=== PATIENT | female | born 1975 | race Caucasian/White ===

== ENCOUNTER → 2016-08-31 | Outpatient (CLI) | payer BC | LOC: RAD 13:43 | PROVIDERS: ATTEND Otolaryngology | DX: H74.8X2 Other specified disorders of left middle ear and mastoid (principal) | CPT/HCPCS: 70480 ==

== ENCOUNTER 2016-10-20 09:19 | Day surgery (SDC) | payer BC ==
[2016-10-16 09:32] LABS: HEMOGLOBIN 14.1 g/dL (12.0-15.5); HGB HCT DIFFERENCE 1.3; MEAN CORPUSCULAR HEMOGLOBIN 29.6 pg (27.0-33.4); MEAN CORPUSCULAR HGB CONC 34.3 g/dL (32.0-36.0); MEAN CORPUSCULAR VOLUME 86 fl (80-97); RED BLOOD COUNT 4.77 10^6/uL (3.72-5.28); RED CELL DISTRIBUTION WIDTH 12.6 % (11.5-14.0); WHITE BLOOD COUNT 5.7 10^3/uL (4.0-10.5)
[2016-10-16 09:59] LABS: ANION GAP 11 (5-19); BLOOD UREA NITROGEN 17 mg/dL (7-20); CALCIUM 9.8 mg/dL (8.4-10.2); CARBON DIOXIDE 27 mmol/L (22-30); CHLORIDE 102 mmol/L (98-107); CREATININE RESULT 0.76 mg/dL (0.52-1.25); GLUCOSE 88 mg/dL (75-110); POTASSIUM 4.9 mmol/L (3.6-5.0)
[~2016-10-20 09:19] MED LIST: ACETAMINOPHEN 325 MG TABLET PO PRN; CEFAZOLIN 1 GM/D5W RTU 1 GM/50 ML RTUPB IV PRN; LACTATED RINGERS 1000 ML IV PRN; LIDOCAINE 0.5% INJ-PF (5 MG/ML) 50 ML SDV SUBCUT PRN
[2016-10-20] MEDS ORDERED: BUPIVACAINE HCL 0.25 % INJ/PF (2.5 MG/1 ML) 30 ML VIAL ONE (09:20)
[2016-10-20] MEDS ORDERED: HYDROMORPHONE HCL INJ/PF 2 MG/ML AMPULE ONE (10:49)
[2016-10-20] MEDS ORDERED: FENTANYL CITRATE INJ/PF 100 MCG/2 ML AMPUL ONE (10:49)
[2016-10-20] MEDS ORDERED: PROPOFOL INJ 200 MG/20 ML VIAL IV ONE (10:50)
[2016-10-20] MEDS ORDERED: ACETAMINOPHEN 100 ML IV ONE (10:50)
[2016-10-20] MEDS ORDERED: MIDAZOLAM 2 MG/2 ML INJ ONE (10:50)
[2016-10-20] MEDS ORDERED: MORPHINE SULFATE 10 MG/ML INJ IV PRN (12:02)
[2016-10-20] MEDS ORDERED: DIPHENHYDRAMINE HCL 50 MG/ML VIAL IV PRN (12:02)
[2016-10-20] MEDS ORDERED: FENTANYL CITRATE INJ/PF 100 MCG/2 ML AMPUL IV PRN ×3 (12:02)
[2016-10-20] MEDS: FENTANYL CITRATE INJ/PF 100 MCG/2 ML AMPUL ONE ×2 (13:05→13:10)
--- NOTE | 2016-10-20 13:06 | Operative Report ---
Operative Report DATE OF SURGERY: 10/20/16 PREOPERATIVE DIAGNOSIS: Umbilical hernia POSTOPERATIVE DIAGNOSIS: Umbilical hernia OPERATION: Umbilical hernia repair SURGEON: MINA JOHNSTON ANESTHESIA: GA TISSUE REMOVED OR ALTERED: Hernia sac, omentum COMPLICATIONS: None ESTIMATED BLOOD LOSS: Minimal INTRAOPERATIVE FINDINGS: 1.5 cm umbilical hernia fascial defect. Fairly large hernia sac with the herniated omentum. PROCEDURE: Informed consent was obtained. Patient was brought to the operating room and placed on the operating room table in the supine position. After satisfactory induction of general anesthesia, patient's abdomen was prepped and draped in the usual sterile fashion. Local anesthetic was administered. A semicircular infraumbilical incision was made. Dissection was carried down. The hernia sac was dissected off of the overlying umbilicus. The hernia sac was open revealing omentum. The omentum was adhered to the hernia sac and these adhesions were taken down. Portion of the herniated omentum was taken by clamping dividing and tying. Dropping the remainder of the omentum back into the peritoneal cavity. The hernia sac was excised. The fascial defect measured 1.5 cm in size. It was fixed primarily using interrupted Ethibond sutures closing the defect transversely. The repair came together well without tension. Hemostasis appeared excellent. The bellybutton was tacked to the underlying fascia using interrupted Vicryl sutures. Skin was closed with interrupted dermal Vicryl sutures. Steri-Strips were applied. Patient tolerated procedure well with no apparent complications and was taken to the recovery area in stable condition.
--- NOTE | 2016-10-20 13:09 | PDOC DISCHARGE SUMMARY ---
Discharge Summary (SDC) - Discharge Final Diagnosis: Umbilical hernia. Date of Surgery: 10/20/16 Discharge Date: 10/20/16 Condition: Good Treatment or Instructions: Umbilical hernia repair. May discharge patient home when met discharge criteria. May shower in 2 days. Keep Steri-Strips on. Stay active but avoid strenuous activity. Follow-up with me in 2 weeks. Prescriptions: Oxycodone HCl/Acetaminophen [Percocet 5-325 mg Tablet] 1 tab PO ASDIR PRN #25 tablet PRN Reason: Discharge Diet: As Tolerated Discharge Activity: Activity As Tolerated - Stay active but avoid strenuous activity. Report the Following to Your Physician Immediately: Fever over 101 Degrees, Unusual Bleeding, Redness, Drainage-Foul Smelling
[2016-10-20] MEDS ORDERED: RINGERS SOLUTION,LACTATED 1,000 ML IV PRN (13:10)
[2016-10-20] MEDS ORDERED: ONDANSETRON HCL INJ/PF 4 MG/2 ML SDV IV PRN (13:10)
[2016-10-20] MEDS ORDERED: OXYCODONE-ACETAMINOPHEN 5-325 MG TABLET PO PRN (13:10)
[2016-10-20] MEDS ORDERED: ONDANSETRON HCL INJ/PF 4 MG/2 ML SDV ONE ×2 (13:37→13:55)
[2016-10-20] MEDS ORDERED: SUCCINYLCHOLINE CHLORIDE INJ 200 MG/10 ML VIAL ONE (13:55)
[2016-10-20] MEDS ORDERED: DEXAMETHASONE SOD PHOSPHATE INJ 4 MG/1 ML VIAL ONE (13:55)
[2016-10-20] MEDS ORDERED: LIDOCAINE 2% INJ-PF (20 MG/ML) 10 ML AMPUL ONE (13:55)
[2016-10-20] MEDS ORDERED: SCOPOLAMINE HYDROBROMIDE 1.5 MG PATCH.TD72 ONE (14:22)
[2016-10-20 15:42] VITALS: BP 147/85
== END 2016-10-20 15:35 | disposition home or self-care (01) ==
LOC: OROUT 09:19
PROVIDERS: ATTEND Surgery
PROC: 0WQF0ZZ Repair Abdominal Wall, Open Approach (ICD-10-PCS; principal; 2016-10-20 11:30)
DX: K42.9 Umbilical hernia without obstruction or gangrene (principal); E66.9 Obesity, unspecified; Z79.3 Long term (current) use of hormonal contraceptives; Z79.899 Other long term (current) drug therapy; Z68.34 Body mass index [BMI] 34.0-34.9, adult; Z87.442 Personal history of urinary calculi
CPT/HCPCS: 36415; 85027; 81025; 80048; 88302 ×2; 49585; J2250; J0690; J1100; J3010; J1170; J0330; J2405; J2704; J3490; J0131; 750

== ENCOUNTER → 2016-10-28 | Outpatient (CLI) | payer BC ==
[2016-10-28 09:09] LABS: ABSOLUTE EOSINOPHILS # (AUTO) 0.1 10^3/uL (0.0-0.6); ABSOLUTE LYMPHOCYTES (AUTO) 1.2 10^3/uL (0.5-4.7); ABSOLUTE MONOCYTES (AUTO) 0.5 10^3/uL (0.1-1.4); ABSOLUTE NEUT (AUTO) 3.7 10^3/uL (1.7-8.2); BASOPHILS % (AUTO) 0.7 % (0-2); EOSINOPHILS % (AUTO) 2.4 % (0-6); HEMATOCRIT 39.6 % (36.0-47.0); HEMOGLOBIN 13.2 g/dL (12.0-15.5); MEAN CORPUSCULAR HGB CONC 33.4 g/dL (32.0-36.0); MEAN CORPUSCULAR VOLUME 87 fl (80-97); MONOCYTES % (AUTO) 8.2 % (3-13); RED BLOOD COUNT 4.55 10^6/uL (3.72-5.28); RED CELL DISTRIBUTION WIDTH 13.1 % (11.5-14.0); SEGMENTED NEUTROPHILS % (AUTO) 66.7 % (42-78); WHITE BLOOD COUNT 5.6 10^3/uL (4.0-10.5)
[2016-10-28 09:39] LABS: ALANINE AMINOTRANSFERASE 30 U/L (9-52); ALKALINE PHOSPHATASE 54 U/L (38-126); ANION GAP 9 (5-19); ASPARTATE AMINO TRANSFERASE 21 U/L (14-36); BILIRUBIN,DIRECT 0.3 mg/dL (0.0-0.4); BILIRUBIN,TOTAL 0.4 mg/dL (0.2-1.3); BLOOD UREA NITROGEN 16 mg/dL (7-20); CALCIUM 8.9 mg/dL (8.4-10.2); CARBON DIOXIDE 27 mmol/L (22-30); CHLORIDE 102 mmol/L (98-107); CHOLESTEROL 259.94 mg/dL (0-200); CREATININE RESULT 0.77 mg/dL (0.52-1.25); Direct HDL 42 mg/dL (>40); GLUCOSE 87 mg/dL (75-110); SODIUM 138.2 mmol/L (137-145); TOTAL PROTEIN 7.1 g/dL (6.3-8.2); TRIGLYCERIDES 162 mg/dL (<150)
[2016-10-28 09:49] LABS: DIRECT LDL 176 mg/dL (<100)
[2016-10-28 09:51] LABS: VLDL CHOLESTEROL 32.4 mg/dL (10-31)
[2016-10-29 14:02] LABS: C-PEPTIDE 2.8 ng/mL (1.1-4.4); INSULIN 10.3 uIU/mL (2.6-24.9)
== END ==
LOC: OD 07:57
PROVIDERS: ATTEND Internal Medicine
DX: Z00.00 Encounter for general adult medical examination without abnormal findings (principal); R73.9 Hyperglycemia, unspecified
CPT/HCPCS: 36415; 80053; 80061; 83036; 83525; 84443; 84681; 85025

== ENCOUNTER 2017-01-08 06:37 | Day surgery (SDC) | payer BC ==
[2017-01-08] MEDS ORDERED: CIPROFLOXACIN HCL/DEXAMETH OTIC DROP 7.5 ML ONE (06:47)
[2017-01-08] MEDS ORDERED: EPINEPHRINE INJ 30 MG/30 ML VIAL ONE (06:47)
[2017-01-08] MEDS ORDERED: LIDOCAINE 1%/EPINEPHRINE INJ 20 ML VIAL ONE (06:47)
[2017-01-08] MEDS ORDERED: PHENYLEPHRINE HCL INJ/PF 10 MG/1 ML SDV ONE (07:10)
[2017-01-08] MEDS ORDERED: FENTANYL CITRATE INJ/PF 250 MCG/5 ML AMPULE ONE (07:11)
[2017-01-08] MEDS ORDERED: MIDAZOLAM 2 MG/2 ML INJ ONE (07:11)
[2017-01-08] MEDS ORDERED: FENTANYL CITRATE INJ/PF 100 MCG/2 ML AMPUL ONE ×2 (07:11→11:25)
[2017-01-08] MEDS ORDERED: MORPHINE SULFATE 10 MG/ML INJ ONE (07:12)
[2017-01-08] MEDS ORDERED: EPHEDRINE SULFATE INJ 50 MG/1 ML AMPULE ONE (07:12)
[2017-01-08] MEDS ORDERED: PROPOFOL INJ 200 MG/20 ML VIAL IV ONE (07:13)
[2017-01-08] MEDS ORDERED: FAMOTIDINE INJ/PF 20 MG/2 ML SDV IV ONE (07:15)
[2017-01-08] MEDS ORDERED: NALOXONE HCL INJ/PF 0.4 MG/1 ML SDV ONE (07:16)
[2017-01-08] MEDS ORDERED: SCOPOLAMINE HYDROBROMIDE 1.5 MG PATCH.TD72 TD ONE (07:30)
[2017-01-08] MEDS ORDERED: BACITRACIN ZINC OINTMENT 15 GM TP PRN (09:02)
[2017-01-08] MEDS ORDERED: LIDOCAINE 2% INJ-PF (20 MG/ML) 10 ML AMPUL ONE (11:27)
[2017-01-08] MEDS ORDERED: DEXAMETHASONE SOD PHOSPHATE INJ 4 MG/1 ML VIAL ONE (11:27)
[2017-01-08] MEDS ORDERED: SUCCINYLCHOLINE CHLORIDE INJ 200 MG/10 ML VIAL ONE (11:28)
[2017-01-08] MEDS ORDERED: AMPICILLIN SOD INJ 1 GM VIAL ONE (11:28)
[2017-01-08] MEDS ORDERED: ONDANSETRON HCL INJ/PF 4 MG/2 ML SDV ONE (11:28)
[2017-01-08] MEDS ORDERED: RINGERS SOLUTION,LACTATED 1,000 ML IV ONE (11:30)
[2017-01-08] MEDS: FENTANYL CITRATE INJ/PF 100 MCG/2 ML AMPUL ONE ×2 (12:04→12:16)
--- NOTE | 2017-01-08 16:10 | OPERATIVE REPORT E ---
Operative Report NAME: YRIS CABRAL : 1975 AGE: 41Y DATE OF SURGERY: 01/08/2017 ROOM: PREOPERATIVE DIAGNOSES: 1. Atelectasis, left tympanic membrane. 2. Left mastoid sclerosis. 3. Granuloma, left tympanic membrane and middle ear. POSTOPERATIVE DIAGNOSES: 1. Atelectasis, left tympanic membrane. 2. Left mastoid sclerosis. 3. Granuloma, left tympanic membrane and middle ear. OPERATION: 1. Left canal wall intact mastoidectomy with tympanoplasty. 2. Excision of granuloma from middle ear. SURGEON: MICHELLE DIAL M.D. CONSUMER SAFETY OFFICER: None. ANESTHESIA: General, Michael Tafoya MD with Dotty Mcbride CRNA PREOPERATIVE NOTE: This is a 41-year-old female who has a long history of ear disease dating back into childhood. She had multiple sets of tubes placed by Dr. Cabral when she was younger, back in the 1970s. She thinks she must have had 9 sets of tubes. She was originally seen here by Dennis Woodward III, MD. He treated her with Ciprodex otic suspension and saw her in followup on 11/27/2015 He though the tympanic membrane looked fine. She was then seen again in mid-August 2016 at which point there was a posterosuperior recess which looked wet and appeared to have granulation tissue around it, strongly suggestive of an early cholesteatoma. The concern was that this retraction pocket was being sucked down onto the incus long process or incudostapedial joint area. A perforation, as such, was not seen, but certainly this did look very concerning. She was again treated with Ciprodex otic suspension and set up for a temporal bone CT. The CT scan was done at [facility] and she was seen back in followup on 09/03/2016. The CT scan showed sclerosis of the left mastoid, very much more than the right. It was felt, at this point, that she ought to have a canal wall intact mastoidectomy with tympanoplasty to render this ear safe. For some reason, the patient did not want to have the surgery done until the end of December/early January. She now comes in to have this procedure done. PROCEDURE: The patient was seen and identified in the preoperative holding area. She is seen in company with her mother. The left ear was marked for laterality. The patient was then given a scopolamine patch because she has problems with nausea, vomiting and dizziness with anesthetics. She was then taken to the operating room and placed in supine position. General anesthesia was induced and an oral endotracheal tube was placed. The patient was carefully positioned. The left ear was further shaved, although she had done a very good job of this already. The facial nerve monitoring electrodes were then placed and connected and the equipment was tested and was seen to be functioning satisfactorily. The left ear was then appropriately prepped and draped for left otologic surgery. A short time-out then took place, during which all issues relating to the patient's identify, the patient's positioning on the table, the laterality of the part to be operated on, the procedures to be performed and the risks attendant thereto were discussed and there were no matters arising. The Zeiss operating microscope was then brought into the field and the left ear canal was examined and flushed. The atelectatic area was inflated, possibly by the anesthetic gases. It appeared to have granulomas all over it. The tympanic membrane was otherwise noted to be intact. It was suctioned clean and then the external canal was infiltrated with 1% lidocaine 1:200,000 epinephrine utilizing a 25-gauge needle. The same material was used to infiltrate the postauricular skin crease which was marked for its incision. A return was made to the external canal and radial incisions were brought out at 6 o'clock and 12 o'clock and these were connected using a canal knife, leaving a generous posterosuperior corner. This flap was then elevated down towards the annulus. A laterally-based posterior canal wall flap was also developed for a short distance in the lateral direction. The tympanomeatal flap was now elevated down to the annulus and this was elevated inferiorly and the middle ear was entered. The elevation of the annulus was then carried superiorly until the retraction pocket in the region of the incus was encountered. Dissection was then directed above that point, and carried into the notch of Rivinus. The chorda tympani nerve was identified at the inferior limits of the second area, and that structure was gradually traced in an anterior direction towards the neck of the malleus, but significant scar tissue and swelling was encountered in the surrounding membrane, at about the half way point, and this dissection was discontinued for fear of stretching the nerve too much. There then began a tedious dissection of the retraction pocket itself. This was gently done with a mixture of instruments including the House number 1 knife, the round knife, the Hull pick and the whirlybird. Eventually, the pocket could be teased out of the middle ear without rupturing it. The tympanomeatal flap could now then be reflected forwards as far as the neck and short process of the malleus. With gentle dissection, it now proved possible to separate the chorda tympani nerve from the flap. Some of that was done utilizing Bellucci scissors. Reflecting the tympanomeatal flap back onto the posterior canal wall, it was decided to divide the flap itself into 2 halves, and excise the diseased area of the tympanic membrane. This was done with Bellucci scissors with good result. That specimen was then handed to the circulating nurse to be transferred to the Pathology Department for histological examination. Dissection now could be more easily done onto the short process of the malleus. An incision was made along the handle of the malleus using a sharpened Hull pick. The periosteum was elevated in a lateral direction and then anteriorly in order to shell the handle of the malleus and short process out of their periosteal coverings. This developed a pocket to allow for the insertion of a tongue of temporalis fascia that would become medial to the tympanic membrane. The umbo was not disturbed and the tip of the handle of the malleus was still attached there. Two large pieces of Gelfoam sponge soaked in Ciprodex otic suspension were then placed in the middle ear. The postauricular skin incision was now cross hatched and incised using a #15 blade on a #7 handle. Superficial bleeding points were secured using needlepoint electrocautery set at 25 on coagulating current. The dissection was then done with curved iris scissors in an anterior direction towards the external canal. A Weitlaner was inserted. Dissection was done down onto the temporalis muscle. A large piece of fool's fascia was harvested and stored dry on the block. A similar sized piece of temporalis fascia was then harvested and this was cleansed and then placed in the fascia press for later use. Bleeding points were secured with needlepoint electrocautery. The inferior temporal line was then confirmed using needlepoint electrocautery and a second such incision was created at right angles to the first, along the length,of the mastoid process from above,inferiorly. Mastoid periosteum was then elevated, anteriorly and posteriorly, with a periosteal elevator. The spine of Henle came into view. It was then possible to elevate the laterally-based posterior canal wall flap using a Needville elevator. A Kruse self-retaining retractor was then inserted , and a good view of the external canal and tympanic membrane was attained. A Weitlaner was then inserted, superoinferiorly, and drilling was commenced on the external surface of the mastoid bone. Copious irrigation was utilized and bone dust was collected in a Brandcast suction trap for later use at the time of closure. This was washed multiple times in saline. The mastoid process, as expected, was heavily sclerotic. A great deal of drilling had to be done. A Meenu septum was encountered. There was cancellous bone marrow around the mastoid tip. There were a few air cells medially. The sigmoid sinus was mildly lateralized, but not as lateral as in some cases. The antrotomy was easily performed and then the superior margin of the mastoid dissection was taken superiorly with large cutting bur until the dural plate of the middle cranial fossa was identified and skeletonized. The sigmoid sinus was likewise identified and skeletonized and the dissection was taken up and back to confirm Citelli's angle. The posterior canal wall was thinned from behind. The dissection there was taken down until the lateral semicircular canal came into view and also, eventually, the body and short process of the incus. No drilling occurred on the ossicles. There was no necessity to do much more opening of the aditus ad antrum as, having first removed the Gelfoam sponges that had been placed there, free flow of irrigation fluid was noted through into the middle ear from the Antrum. At this point, attention was turned back to the tympanoplasty and the middle ear. The tympanomeatal flap halves were reflected forward. The medial aspect of the tympanic membrane remnant was scraped with a Helix drum-scraper. The middle ear was then filled with chips of Gelfoam soaked in Ciprodex otic suspension. The temporalis fascia graft was then trimmed to size and was inserted with the leading tongue placed lateral to the handle and short process of the malleus , but medial to the tympanic membrane remnant. It was then led up onto the posterior bony canal wall. The tympanomeatal flaps were returned and further chips of Gelfoam sponge were placed lateral to all of that. The mastoid dissection was then reviewed. The remainder of the temporalis fascia graft was placed in the medial aspect of the aditus ad antrum and the neighboring mastoid antrum itself. The fool's fascia was compressed in the fascia press and then was laid on the medial aspect of the mastoid bowl. The whole of the mastoid bowl was now filled with Gelfoam sponge soaked in Ciprodex otic suspension. A sheet of Gelfilm was trimmed to size and placed over the cortical defect. This was then covered with previously harvested bone dust. The mastoid periosteum was then reconstituted loosely with 2-0 chromic catgut sutures. The conchal cartilage was then sutured back to the posterior mastoid periosteum using a pair of chromic catgut sutures to prevent postoperative anterior migration of this structure. The wound was then closed in layers using 2-0 chromic catgut interrupted sutures with buried knots through the subdermal layer and then skin loraine for the skin. A quarter-inch Kelsi drain was led out of the inferior end of the wound and this was secured with a single 2-0 chromic catgut suture. The external canal was then visualized with the microscope and the laterally-based posterior canal wall flap was replaced and a finger cot pack, created by removing the "pinky" finger from a #7 surgical glove filled with cotton, was placed in the external auditory meatus having first lubricated it with bacitracin ointment. The drapes were all removed and the wound was cleansed with saline and then dried and then the area was liberally coated with bacitracin ointment. Telfa was then utilized, followed by the Christa dressing. The facial nerve monitoring electrodes were removed. The patient was awakened, and extubated, light and transferred to the PACU in good condition having tolerated the procedure well. Estimated blood loss was 20 mL. Replacement was 1600 mL of lactated Ringer's. There were no complications or untoward events and the facial nerve function was seen to be intact at the close of the surgical procedure. DICTATING PHYSICIAN: MICHELLE DIAL M.D. [id number] PHY#: [id number] ID: [id number] JOB#: [id number] ACCT: [id number] cc:MICHELLE DIAL M.D. > TANIA
== END 2017-01-08 13:35 | disposition home or self-care (01) ==
LOC: SC 06:37
PROVIDERS: ATTEND Otolaryngology
PROC: 09Q60ZZ Repair Left Middle Ear, Open Approach (ICD-10-PCS; 2017-01-08)
PROC: 09B60ZZ Excision of Left Middle Ear, Open Approach (ICD-10-PCS; 2017-01-08)
PROC: 0NB60ZZ Excision of Left Temporal Bone, Open Approach (ICD-10-PCS; principal; 2017-01-08 07:30)
DX: H73.812 Atrophic flaccid tympanic membrane, left ear (principal); H71.12 Cholesteatoma of tympanum, left ear; H70.12 Chronic mastoiditis, left ear; F90.9 Attention-deficit hyperactivity disorder, unspecified type
CPT/HCPCS: 88305 ×2; 69643; 69799; J0290; J2250; J1100; J0171; J3010 ×2; J3490 ×3; J0330; J2405; J7120; J2704; S0028; 120; J2270; J2310; J2370

== ENCOUNTER → 2017-12-23 | Outpatient (CLI) | payer BC ==
[2017-12-23 11:27] LABS: ALANINE AMINOTRANSFERASE 34 U/L (9-52); ALBUMIN 4.3 g/dL (3.5-5.0); ALKALINE PHOSPHATASE 50 U/L (38-126); ASPARTATE AMINO TRANSFERASE 31 U/L (14-36); BILIRUBIN,DIRECT 0.3 mg/dL (0.0-0.4); BILIRUBIN,TOTAL 0.4 mg/dL (0.2-1.3)
== END ==
LOC: OD 09:48
PROVIDERS: ATTEND Internal Medicine
DX: Z51.81 Encounter for therapeutic drug level monitoring (principal); Z79.899 Other long term (current) drug therapy
CPT/HCPCS: 36415; 80076

== ENCOUNTER → 2018-03-22 | Outpatient (CLI) | payer BC ==
[2018-03-22 11:52] LABS: ALANINE AMINOTRANSFERASE 58 U/L (9-52); ALBUMIN 4.5 g/dL (3.5-5.0); ALKALINE PHOSPHATASE 52 U/L (38-126); ASPARTATE AMINO TRANSFERASE 32 U/L (14-36); BILIRUBIN,DIRECT 0.1 mg/dL (0.0-0.4); BILIRUBIN,TOTAL 0.5 mg/dL (0.2-1.3); TOTAL PROTEIN 7.3 g/dL (6.3-8.2); TRIGLYCERIDES 99 mg/dL (<150)
[2018-03-22 12:03] LABS: DIRECT LDL 145 mg/dL (<100)
== END ==
LOC: OD 10:25
PROVIDERS: ATTEND Internal Medicine
DX: E78.5 Hyperlipidemia, unspecified (principal); Z79.899 Other long term (current) drug therapy
CPT/HCPCS: 36415; 80061; 80076

== ENCOUNTER → 2018-06-17 | Outpatient (CLI) | payer BC | LOC: OD 10:53 | PROVIDERS: ATTEND Family Medicine | DX: J02.9 Acute pharyngitis, unspecified (principal) | CPT/HCPCS: 87070; 87077; 87880 ==

== ENCOUNTER → 2018-10-06 | Outpatient (CLI) | payer BC | LOC: OD 13:55 | PROVIDERS: ATTEND Otolaryngology | DX: R09.81 Nasal congestion (principal); Z53.8 Procedure and treatment not carried out for other reasons | CPT/HCPCS: 36415; 82785; 86003 ==

== ENCOUNTER → 2018-10-13 | Outpatient (CLI) | payer BC | LOC: OD 16:30 | PROVIDERS: ATTEND Otolaryngology | DX: R09.81 Nasal congestion (principal) | CPT/HCPCS: 36415; 82785; 86003 ==

== ENCOUNTER → 2019-03-31 | Outpatient (CLI) | payer BC ==
[2019-03-31 09:47] LABS: ABSOLUTE EOSINOPHILS # (AUTO) 0.1 10^3/uL (0.0-0.6); ABSOLUTE LYMPHOCYTES (AUTO) 1.3 10^3/uL (0.5-4.7); ABSOLUTE MONOCYTES (AUTO) 0.4 10^3/uL (0.1-1.4); ABSOLUTE NEUT (AUTO) 2.8 10^3/uL (1.7-8.2); BASOPHILS % (AUTO) 0.8 % (0-2); EOSINOPHILS % (AUTO) 1.7 % (0-6); HEMATOCRIT 40.1 % (36.0-47.0); HEMOGLOBIN 13.8 g/dL (12.0-15.5); LYMPHOCYTES % (AUTO) 27.6 % (13-45); MEAN CORPUSCULAR HEMOGLOBIN 29.2 pg (27.0-33.4); MEAN CORPUSCULAR HGB CONC 34.4 g/dL (32.0-36.0); MEAN CORPUSCULAR VOLUME 85 fl (80-97); MONOCYTES % (AUTO) 8.4 % (3-13); PLATELET COUNT 230 10^3/uL (150-450); RED BLOOD COUNT 4.72 10^6/uL (3.72-5.28); RED CELL DISTRIBUTION WIDTH 12.8 % (11.5-14.0); SEGMENTED NEUTROPHILS % (AUTO) 61.5 % (42-78); TOTAL CELLS COUNTED % (AUTO) 100 %; WHITE BLOOD COUNT 4.5 10^3/uL (4.0-10.5)
[2019-03-31 10:15] LABS: ALBUMIN 4.8 g/dL (3.5-5.0); ALKALINE PHOSPHATASE 61 U/L (38-126); ANION GAP 13 (5-19); ASPARTATE AMINO TRANSFERASE 33 U/L (14-36); BILIRUBIN,DIRECT 0.1 mg/dL (0.0-0.4); BILIRUBIN,TOTAL 0.4 mg/dL (0.2-1.3); BLOOD UREA NITROGEN 15 mg/dL (7-20); CALCIUM 9.3 mg/dL (8.4-10.2); CARBON DIOXIDE 25 mmol/L (22-30); CHLORIDE 105 mmol/L (98-107); CHOLESTEROL 218.65 mg/dL (0-200); GLUCOSE 89 mg/dL (75-110); POTASSIUM 4.5 mmol/L (3.6-5.0); TOTAL PROTEIN 7.9 g/dL (6.3-8.2); TRIGLYCERIDES 53 mg/dL (<150)
[2019-03-31 10:25] LABS: DIRECT LDL 142 mg/dL (<100)
== END ==
LOC: OD 08:34
PROVIDERS: ATTEND Internal Medicine
DX: E78.5 Hyperlipidemia, unspecified (principal); R53.83 Other fatigue
CPT/HCPCS: 36415; 80053; 80061; 84443; 85025

== ENCOUNTER → 2020-04-24 | Outpatient (CLI) | payer BC ==
[2020-04-24 09:33] VITALS: BP 117/81
--- NOTE | 2020-04-24 09:33 | ER [facility] ASSESSMENT REPORT ---
Intake - In the Last 14 days Have you traveled outside [place]?: No Have you been in close contact with someone CONFIRMED: Yes Worked in Healthcare?: No - Symptoms Subjective Fever([place] feverish): No Chills: No Muscule Aches: No Runny Nose: No Sore Throat: No Cough (New or worsening chronic cough): No Shortness of breath: No Nausea or Vomiting: No Headache: No Abdominal Pain: No Diarrhea(3 or more loose stools in last 24 hours): No - Do you have any of the following Chronic lung disease: Asthma or emphysema or COPD: No Cystic Fibrosis: No Diabetes: No High Blood Pressure: No Cardiovascular Disease: No Chronic Kidney Disease: No Chronic Liver Disease: No Chronic blood disorder like Sickle Cell Disease: No Weak immune system due to disease or medication: No Neurologic condition that limits movement: No Developmental delay - Moderate to Severe: No Recent (within past 2 weeks) or current : No Morbid Obesity (>100 pounds over ideal weight): No - Objective Temperature: 97.5 F Pulse Rate: 72 Respiratory Rate: 15 Blood Pressure: 117/81 O2 Sat by Pulse Oximetry: 99 Objective: Given above, testing performed: If Testing Performed: Test Specimen Type Sent to General - General Information source: Patient Notes: Patient presents to the [facility] for screening for the coronavirus. Patient denies any symptoms although was around someone who recently tested positive. - Related Data Allergies/Adverse Reactions: No Known Drug Allergies Allergy (Verified 10/13/16 16:09) Past Medical History - General Information source: Patient - Social History Family History: Other - Medical History Medical History: Negative - Past Medical History Cardiac Medical History: Denies: Hx Coronary Artery Disease, Hx Heart Attack, Hx Hypertension Neurological Medical History: Denies: Hx Cerebrovascular Accident, Hx Seizures Renal/ Medical History: Reports: Hx Kidney Stones GI Medical History: Denies: Hx Hepatitis, Hx Hiatal Hernia, Hx Ulcer Musculoskeletal Medical History: Denies Hx Arthritis Infectious Medical History: Denies: Hx Hepatitis Past Surgical History: Reports: Hx Section, Hx Tonsillectomy - and addenoidectomy Physical Exam - Notes Notes: The patient was evaluated during the global Covid 19 pandemic, and that diagnosis was suspected/considered upon their initial presentation. Their evaluation and testing was consistent with current guidelines for patients who present with complaints or symptoms that may be related to Covid 19. Full physical exam could not be performed due to covid 19 isolation protocols. Constitutional: Nontoxic appearance, no acute distress Eyes: Nonicteric, extraocular movements intact, sclera clear ENT: posterior pharynx without exudates Cardiovascular: Heart rate and rhythm regular Respiratory: Breath sounds clear bilaterally, nonlabored breathing, no use of accessory muscles, no tachypnea Gastrointestinal: Abdomen not distended Muculoskeletal: Moves all extremities well Skin: Normal color Neuro: Awake alert oriented, normal speech Psych: Normal mood and affect Diagnostic Results Laboratory Results: Patient presents with exposure worrisome for possible Covid 19. Patient does not have emergency worrying symptoms such as difficulty breathing, shortness of breath, chest pain, pressure, confusion or cyanosis. Patient appears suitable for discharge as they are not of an advanced age, do not have any chronic medical conditions such as diabetes, CAD, immune deficiency, chronic lung disease or chronic kidney disease. Patient's vital signs are stable and patient is nontoxic in appearance. Good return precautions have been discussed with patient, patient verbalized understanding and is agreeable with discharge plan of care at this time. Patient Education/Counseling Counseling/Education: Patient was provided with discharge information including: As a person under investigation for Covid 19, the [place] department of Health and Human Services, division of public health advises you to adhere to the following guidance until your test results are reported to you. If your test result is positive, you will receive additional information from your provider and your local health department at that time. Remain at home until you are cleared by the health provider or public health authorities. Keep a log of visitors to your home, notify any visitors to your home of your isolation status. If you plan to move to a new address or leave the county, notify the local health department in your County. Call your doctor or seek care if you have an urgent medical need. Before seeking medical care, call ahead to get instructions from the provider before arriving at the medical office clinic or hospital. Notify them that you are being tested for the virus that causes Covid 19 so that arrangements can be made, as necessary, to prevent transmission to others in the healthcare setting. Next, notify the local health department in your county. If a medical emergency arises and you need to call 911, inform the first responders that you are being tested for the virus that causes Covid 19. Next, notify the local health department in your county. [facility] Discharge - Discharge Clinical Impression: Encounter for screening laboratory testing for COVID-19 virus in asymptomatic patient Condition: Stable Disposition: Home; Selfcare
== END ==
LOC: RDC 09:04
PROVIDERS: ATTEND Nurse Practitioner Family
DX: Z20.828 Contact with and (suspected) exposure to other viral communicable diseases (principal)
CPT/HCPCS: 99201; 99211; U0003; C9803; 87635